=== PATIENT | female | born 1975 | race Caucasian/White ===

== ENCOUNTER 2022-04-08 10:31 | Outpatient (CLI) | payer BC | END 2022-04-08 10:32 | disposition home or self-care (01) | LOC: BICMAMMO 10:31 | PROVIDERS: ATTEND Physician Assistant | DX: N63.11 Unspecified lump in the right breast, upper outer quadrant (principal) | CPT/HCPCS: G0279 ==

== ENCOUNTER 2023-10-06 09:21 | Outpatient (CLI) | payer BC | END 2023-10-06 09:22 | disposition home or self-care (01) | LOC: BICMAMMO 09:21 | PROVIDERS: ATTEND Physician Assistant | DX: N63.25 Unspecified lump in the left breast, overlapping quadrants (principal) | CPT/HCPCS: G0279 ==

== ENCOUNTER 2024-04-05 08:34 | Outpatient (CLI) | payer BC | END 2024-04-05 08:35 | disposition home or self-care (01) | LOC: BICMAMMO 08:34 | PROVIDERS: ATTEND Nurse Practitioner Family | DX: N63.25 Unspecified lump in the left breast, overlapping quadrants (principal) | CPT/HCPCS: 77066; G0279 ==

== ENCOUNTER 2024-10-09 14:47 | Outpatient (CLI) | payer BC | END 2024-10-09 14:48 | disposition home or self-care (01) | LOC: BICMAMMO 14:47 | PROVIDERS: ATTEND Nurse Practitioner Family | DX: R92.8 Other abnormal and inconclusive findings on diagnostic imaging of breast (principal) | CPT/HCPCS: G0279 ==